=== PATIENT | female | born 1955 ===

== ENCOUNTER 2023-09-12 06:04 | Day surgery (SDC) | payer OTHER ==
[~2023-09-12 06:04] MED LIST: COZAAR25 MG PO; SIMVASTATIN5 MG PO; TAMS0.4C PO; TIROSINT25 MCG PO
== END 2023-09-12 14:50 | disposition home or self-care (01) ==
LOC: CIR.AMB 06:04
PROVIDERS: ATTEND Surgery Surgery of the Hand
DX: M65.841 Other synovitis and tenosynovitis, right hand (principal); Z20.822 Contact with and (suspected) exposure to COVID-19